=== PATIENT | male | born 1960 | race Caucasian/White ===

== ENCOUNTER 2021-08-07 09:51 | Outpatient (AMB) | payer BC, SELFPAY ==
[2021-08-07 10:49] VITALS: BP 143/81; PULSE 93; TEMP 36.2; BMI 38.5
--- NOTE | 2021-08-07 10:49 | UROVISIT ---
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 Is patient in pain?: No Allergy Allergies No Known Allergies Allergy (Verified 08/07/21 10:50) Home Meds Medication Reconciliation Albuterol Sulfate HFA (INHALER) (PROVENTIL HFA (INHALER)) 2 puff INHALATION Q6HR PRN #0 inh 12/22/13 [History Confirmed 08/07/21] Benazepril Hcl * (LOTENSIN *) 10 mg PO QDAY #0 tab 12/22/13 [History Confirmed 08/07/21] Ezetimibe/Simvastatin (Vytorin 10-20 Mg Tablet) 1 tab PO HS #0 12/22/13 [History Confirmed 08/07/21] aspirin 81 mg chewable tablet (Bay Chewable Low Dose Aspirin) 81 mg PO QDAY #0 12/22/13 [History Confirmed 08/07/21] canagliflozin 300 mg tablet (Invokana) 300 mg PO QDAY #0 12/22/13 [History Confirmed 08/07/21] insulin lispro 100 unit/mL subcutaneous solution (Humalog U-100 Insulin) 14 unit SUB-Q AC #0 vial 12/22/13 [History Confirmed 08/07/21] metformin 1,000 mg tablet (Glucophage) 1,000 mg PO BID #0 tab 12/22/13 [History Confirmed 08/07/21] Psyllium Husk PKT * (METAMUCIL PKT *) 1 pkt PO QDAY PRN #0 pkt 08/28/16 [History Confirmed 08/07/21] docusate sodium 100 mg capsule (Colace) 100 mg PO BID #0 cap 08/28/16 [History Confirmed 08/07/21] insulin glargine 100 unit/mL subcutaneous solution (Lantus U-100 Insulin) 45 unit SUB-Q BID #0 vial 08/28/16 [History Confirmed 08/07/21] dulaglutide 0.75 mg/0.5 mL subcutaneous pen injector (Trulicity) 1 mg SUB-Q QWEEK #2 04/16/17 [History Confirmed 08/07/21] naproxen sodium 220 mg tablet (Aleve) 220 mg PO .PRN #0 tab 08/06/19 [History Confirmed 08/07/21] ibuprofen 600 mg tablet 600 mg PO Q6H #30 tab 11/13/19 [Rx Confirmed 08/07/21] Nurse Note: PSA lab results reviewed with pt. A prostate exam was done by Mitch Garcia was present during exam. Patient is to fu in 1 year after PSA. Fall Screening Do you have a fear of falling?: No Have you had a fall in the last 2 months?: No Do you use an assistive device for ambulation?: No Current Vital Signs Height Height Method Weight Weight Measurement Method Body Mass Index Temperature Temperature Source 1.8 m Stated 125.305 kg Standing Scale 38.5 97.1 F Temporal Artery Scan 08/07/21 10:49 08/07/21 10:49 08/07/21 10:49 08/07/21 10:49 08/07/21 10:49 08/07/21 10:49 08/07/21 10:49 Pulse Rate Pulse Source Blood Pressure Blood Pressure Source Blood Pressure Location Blood Pressure Position 93 Monitor 143/81 H Automatic Cuff Left Upper Arm Sitting 08/07/21 10:49 08/07/21 10:49 08/07/21 10:49 08/07/21 10:49 08/07/21 10:49 08/07/21 10:49 Nursing Documentation Social History Tobacco History Smoking Status: Former smoker Office Procedures Uro Level of Care Nursing/Assessment/Reassessment Patient Status: Established Patient Nursing Assessment/Reassessment: Update [facility] data in EMR, Vital Signs and Medication Reconciliation Coordination of Care: Simp Pt/[facility] for care Established Patient Point Assignment: 45 Established Patient Point Charge: EP Level 2 (40-75) Procedure IM Injection: No Transrectal Ultrasound: No Urology Clinic Office Visit Office Visit Date of visit:: August 07, 2021 09:51 Allergies & Home Medications: Allergies No Known Allergies Allergy (Verified 08/08/20 13:19) Visit: Reason for visit: [] Office Visit findings: []
[2021-08-07 10:54] LABS: Bilirubin,Urine Clinitek Negative (Negative); Blood,Urine Clinitek 1+ (Negative); Glucose, Urine Clinitek 3+ (Negative); Ketones,Urine Clinitek Negative (Negative); Leukocyte Esterase,Urine Clin Negative (Negative); Nitrite,Urine Clinitek Negative (Negative); PH,Urine Clinitek 5.5 (5.0-7.0); Protein,Urine Clinitek Negative (Neg - Trace); Urobilinogen,Urine Clinitek 0.2 mg/dL (0.0-1.0)
--- NOTE | 2021-08-08 06:32 | URONOTEN_ITS ---
RE: YADIRA SHABAZZ : 1960 DATE: 08/07/2021 CHIEF COMPLAINT: 1. BPH with urinary obstruction and LUTS, status post placement of prostatic urethral lift, which was done 5 years ago. 2. Hypertension. 3. Diabetes mellitus. 4. Obesity. HISTORY OF PRESENT ILLNESS: This is a 61-year-old gentleman. He underwent placement of prostatic urethral lift 5 years ago. The patient has done very well. His IPSS score is 4. Quality of life due to urinary symptoms 1. BUN 14, creatinine is 1.0. , GFR 60. PSA on 07/31/2021 is 0.26. He has no history of hematuria, dysuria, or urinary tract infection. Past medical history, family history, review of the systems, personal history, please refer to the patient's history form dated, 08/07/2021, it is in HPI, in EMR. VITAL SIGNS: Vital signs are stable. They are in the HPI, in EMR. GENERAL: Condition is satisfactory. Orientation x3. HEENT: Normocephalic, atraumatic. Eyes: No anemia or jaundice. NECK: Supple. Trachea is central. Thyroid is not enlarged. CHEST: Symmetrical. HEART: Regular rate and rhythm. BREASTS: No masses. ABDOMEN: Very obese. No masses. Liver, spleen, kidney not palpable. No CVA tenderness. RECTAL: Examination of rectum, perineum is normal. External sphincter tone is normal. Prostate is a 40 to 45 g. No definite induration, asymmetry indicative of prostate cancer. No rectal masses. EXTREMITIES: Revealed no edema, cyanosis, or clubbing. VARIOUS LABS: Urine is negative for any infection. BUN is 14, creatinine is 1.0. GFR is 60. PSA on 07/31/2021 is 0.26. RECOMMENDATION: Recommendation is PSA in 1 year. Reappointment in 1 year. DT: 15:55:43 TT: 23:35:00 Ref: - TID: [id number]
== END 2021-08-07 11:27 | disposition home or self-care (01) ==
LOC: HODURO 09:51
PROVIDERS: PCP Specialist; Visit Provider Urology

== ENCOUNTER → 2024-03-19 | Outpatient (CLI) | payer BC, SELFPAY ==
[2024-03-19 10:00] LABS: Glucose Estimated Average 146 mg/dL (80-131); Hemoglobin A1C 6.7 % Hgb (4.8-6.0)
[2024-03-19 10:05] LABS: Creatinine MALB Rnd Ur 169 mg/dL (30-125); Microalbumin Creat Ratio 4 mg/gCrea (<30); Microalbumin, Random Urine 6 mg/L (0-300)
[2024-03-19 10:48] LABS: Alanine Aminotransferase 25 U/L (10-49); Albumin, Serum 4.6 gm/dL (3.4-4.8); Albumin/Globulin Ratio 1.9 (1.2-2.2); Alkaline Phosphatase 67 U/L (46-116); Anion Gap 8 (7-16); Aspartate Amino Transferase 17 U/L (0-34); BUN/Creatinine Ratio 14 Ratio (12-20); Bilirubin,Total 0.5 mg/dL (0.3-1.2); Blood Urea Nitrogen 14 mg/dL (9-23); Calcium 9.4 mg/dL (8.3-10.6); Calcium (Corrected) 9.4 mg/dL (8.5-10.1); Carbon Dioxide 26.1 mMol/L (20.0-31.0); Cardiac Risk Estimate 3.8 RATIO (4.0-6.7); Chloride 101 mMol/L (98-107); Cholesterol 135 mg/dL (132-200); Globulin 2.4 gm/dL (2.3-3.5); Glucose 120 mg/dL (74-106); HDL Cholesterol 36 mg/dL (40-60); LDL Cholesterol,Calculated 70 mg/dL (0-130); Osmolality,Calculated 271 (275-295); Potassium 4.5 mMol/L (3.4-5.1); Sodium 135 mMol/L (136-145); Triglycerides 143 mg/dL (30-150); eGFR > 60 See Note
== END | disposition home or self-care (01) ==
LOC: COPL 08:19
PROVIDERS: PCP Specialist; Referring Provider Specialist; Visit Provider Specialist
DX: E11.65 Type 2 diabetes mellitus with hyperglycemia (principal)
CPT/HCPCS: 36415; 80053; 80061; 82043; 82570; 83036

== ENCOUNTER → 2024-04-20 | Outpatient (CLI) | payer BC, SELFPAY ==
[2024-04-20 10:32] LABS: Prothrombin Time 11.4 Seconds (9.0-12.2)
[2024-04-20 10:33] LABS: Basophils # (Auto) 0.1 Thou/mm3 (0.0-0.2); Basophils % (Auto) 1 % (0-2.5); Eosinophils # (Auto) 0.1 Thou/mm3 (0.0-0.5); Eosinophils % (Auto) 1 % (0-10); Hematocrit 47.3 % (41.0-53.0); Hemoglobin 16.4 g/dL (13.5-16.0); Immature Granulocytes % (Auto) 0 % (0-0); Immature Granulocytes Auto 0.03 Thou/mm3 (0.00-0.00); Lymphocytes # (Auto) 2.1 Thou/mm3 (1.0-4.8); Lymphocytes % (Auto) 26 % (10-50); Mean Corpuscular HGB Conc 34.7 g/dl (31.0-37.0); Mean Corpuscular Hemoglobin 31.6 pg (25.0-35.0); Mean Corpuscular Volume 91 fL (80-100); Monocytes # (Auto) 0.6 Thou/mm3 (0.0-0.8); Monocytes % (Auto) 8 % (0-12); Neutrophils # (Auto) 5.3 Thou/mm3 (1.8-7.7); Neutrophils % (Auto) 65 % (37-80); Nucleated Red Blood Cell % 0 /100 WBC (0); Platelet Count 230 Thou/mm3 (140-440); RDW Standard Deviation 42.3 fL (35.1-43.9); Red Blood Count 5.19 Miln/mm3 (4.50-5.90); White Blood Count 8.2 Thou/mm3 (3.8-10.6)
[2024-04-20 10:47] LABS: Alanine Aminotransferase 30 U/L (10-49); Albumin, Serum 4.8 gm/dL (3.4-4.8); Alkaline Phosphatase 59 U/L (46-116); Anion Gap 10 (7-16); Aspartate Amino Transferase 15 U/L (0-34); BUN/Creatinine Ratio 14 Ratio (12-20); Bilirubin,Direct 0.1 mg/dL (0.0-0.3); Bilirubin,Total 0.4 mg/dL (0.3-1.2); Blood Urea Nitrogen 13 mg/dL (9-23); Calcium 9.9 mg/dL (8.3-10.6); Carbon Dioxide 26.9 mMol/L (20.0-31.0); Cardiac Risk Estimate 3.8 RATIO (4.0-6.7); Chloride 104 mMol/L (98-107); Cholesterol 154 mg/dL (132-200); Creatinine (Component) 0.9 mg/dL (0.6-1.3); Glucose 120 mg/dL (74-106); HDL Cholesterol 41 mg/dL (40-60); LDL Cholesterol,Calculated 79 mg/dL (0-130); Osmolality,Calculated 282 (275-295); Potassium 4.6 mMol/L (3.4-5.1); Sodium 141 mMol/L (136-145); Total Protein 7.4 gm/dL (5.7-8.2); Triglycerides 172 mg/dL (30-150); eGFR > 60 See Note
[2024-04-20 10:50] LABS: AFP Non-Pregnant < 0.00 ng/mL (<8.10)
[2024-04-22 11:19] LABS: HCV RNA, PCR <15 NOT DETECTED IU/mL
[2024-04-23 06:27] LABS: HCV RNA, PCR Log IU <1.18 NOT DETECTED Log IU/mL
== END | disposition home or self-care (01) ==
LOC: COPL 09:31
PROVIDERS: PCP Specialist; Referring Provider Colon & Rectal Surgery; Visit Provider Colon & Rectal Surgery
DX: K74.60 Unspecified cirrhosis of liver (principal); B18.2 Chronic viral hepatitis C
CPT/HCPCS: 36415; 80048; 80061; 80076; 82105; 85025; 85610; 87522

== ENCOUNTER → 2024-06-18 | Outpatient (CLI) | payer BC, SELFPAY ==
[2024-06-18 10:17] LABS: Prostate Specific Antigen 0.37 ng/mL (0-4.00)
[2024-06-18 10:19] LABS: Creatinine MALB Rnd Ur 85 mg/dL (30-125); Microalbumin Creat Ratio 6 mg/gCrea (<30); Microalbumin, Random Urine 5 mg/L (0-300)
[2024-06-18 10:23] LABS: Alanine Aminotransferase 28 U/L (10-49); Albumin, Serum 4.4 gm/dL (3.4-4.8); Albumin/Globulin Ratio 1.7 (1.2-2.2); Alkaline Phosphatase 59 U/L (46-116); Anion Gap 9 (7-16); Aspartate Amino Transferase 18 U/L (0-34); BUN/Creatinine Ratio 17 Ratio (12-20); Bilirubin,Total 0.6 mg/dL (0.3-1.2); Blood Urea Nitrogen 15 mg/dL (9-23); Calcium 9.6 mg/dL (8.3-10.6); Calcium (Corrected) 9.6 mg/dL (8.5-10.1); Carbon Dioxide 26.2 mMol/L (20.0-31.0); Cardiac Risk Estimate 3.4 RATIO (4.0-6.7); Chloride 106 mMol/L (98-107); Cholesterol 131 mg/dL (132-200); Creatinine (Component) 0.9 mg/dL (0.6-1.3); Globulin 2.6 gm/dL (2.3-3.5); Glucose 118 mg/dL (74-106); HDL Cholesterol 38 mg/dL (40-60); LDL Cholesterol,Calculated 62 mg/dL (0-130); Osmolality,Calculated 283 (275-295); Potassium 4.5 mMol/L (3.4-5.1); Sodium 141 mMol/L (136-145); Triglycerides 156 mg/dL (30-150); eGFR > 60 See Note
== END | disposition home or self-care (01) ==
PROVIDERS: PCP Specialist; Referring Provider Specialist; Visit Provider Urology
DX: N40.1 Benign prostatic hyperplasia with lower urinary tract symptoms (principal); E11.65 Type 2 diabetes mellitus with hyperglycemia; E78.2 Mixed hyperlipidemia
CPT/HCPCS: 36415; 80053; 80061; 82043; 82570; 84153

== ENCOUNTER → 2024-08-07 | Outpatient (BNVA) | payer BC, SELFPAY | END | disposition home or self-care (01) | PROVIDERS: PCP Specialist; Referring Provider Specialist; Visit Provider Urology | DX: N40.1 Benign prostatic hyperplasia with lower urinary tract symptoms (principal); N13.8 Other obstructive and reflux uropathy; R35.0 Frequency of micturition; I10 Essential (primary) hypertension; E11.9 Type 2 diabetes mellitus without complications; E66.9 Obesity, unspecified; Z68.34 Body mass index [BMI] 34.0-34.9, adult; E78.00 Pure hypercholesterolemia, unspecified; Z87.891 Personal history of nicotine dependence | CPT/HCPCS: 81003; 99212; G0463 ==

== ENCOUNTER → 2024-10-15 | Outpatient (CLI) | payer BC, SELFPAY ==
[2024-10-15 10:45] LABS: Glucose Estimated Average 126 mg/dL (80-131); Hemoglobin A1C 6.0 % Hgb (4.8-6.0)
[2024-10-15 11:12] LABS: Alanine Aminotransferase 21 U/L (10-49); Albumin, Serum 4.3 gm/dL (3.4-4.8); Albumin/Globulin Ratio 1.4 (1.2-2.2); Alkaline Phosphatase 57 U/L (46-116); Anion Gap 9 (7-16); Aspartate Amino Transferase 18 U/L (0-34); BUN/Creatinine Ratio 12 Ratio (12-20); Bilirubin,Total 0.4 mg/dL (0.3-1.2); Blood Urea Nitrogen 12 mg/dL (9-23); Calcium 9.3 mg/dL (8.3-10.6); Calcium (Corrected) 9.3 mg/dL (8.5-10.1); Carbon Dioxide 25.5 mMol/L (20.0-31.0); Cardiac Risk Estimate 3.9 RATIO (4.0-6.7); Chloride 107 mMol/L (98-107); Cholesterol 132 mg/dL (132-200); Creatinine (Component) 1.0 mg/dL (0.6-1.3); Globulin 3.0 gm/dL (2.3-3.5); Glucose 137 mg/dL (74-106); HDL Cholesterol 34 mg/dL (40-60); LDL Cholesterol,Calculated 75 mg/dL (0-130); Osmolality,Calculated 282 (275-295); Potassium 5.1 mMol/L (3.4-5.1); Sodium 141 mMol/L (136-145); Total Protein 7.3 gm/dL (5.7-8.2); Triglycerides 117 mg/dL (30-150); eGFR > 60 See Note
[2024-10-15 11:33] LABS: Creatinine MALB Rnd Ur 130 mg/dL (30-125); Microalbumin Creat Ratio 4 mg/gCrea (<30); Microalbumin, Random Urine 5 mg/L (0-300)
== END | disposition home or self-care (01) ==
LOC: COPL 09:35
PROVIDERS: PCP Specialist; Referring Provider Specialist; Visit Provider Specialist
DX: E11.65 Type 2 diabetes mellitus with hyperglycemia (principal); E78.2 Mixed hyperlipidemia
CPT/HCPCS: 36415; 80053; 80061; 82043; 82570; 83036

== ENCOUNTER → 2025-02-25 | Outpatient (CLI) | payer MEDICARE, SELFPAY ==
[2025-02-25 11:59] LABS: Glucose Estimated Average 134 mg/dL (80-131); Hemoglobin A1C 6.3 % Hgb (4.8-6.0)
[2025-02-25 12:05] LABS: Creatinine MALB Rnd Ur 85 mg/dL (30-125); Microalbumin Creat Ratio 11 mg/gCrea (<30); Microalbumin, Random Urine 9 mg/L (0-300)
[2025-02-25 12:08] LABS: Alanine Aminotransferase 22 U/L (10-49); Albumin, Serum 5.0 gm/dL (3.4-4.8); Albumin/Globulin Ratio 2.1 (1.2-2.2); Alkaline Phosphatase 56 U/L (46-116); Anion Gap 9 (7-16); Aspartate Amino Transferase 15 U/L (0-34); BUN/Creatinine Ratio 14 Ratio (12-20); Bilirubin,Total 0.5 mg/dL (0.3-1.2); Blood Urea Nitrogen 14 mg/dL (9-23); Calcium 9.8 mg/dL (8.3-10.6); Calcium (Corrected) 9.8 mg/dL (8.5-10.1); Carbon Dioxide 28.8 mMol/L (20.0-31.0); Cardiac Risk Estimate 3.5 RATIO (4.0-6.7); Chloride 103 mMol/L (98-107); Cholesterol 139 mg/dL (132-200); Creatinine (Component) 1.0 mg/dL (0.6-1.3); Globulin 2.4 gm/dL (2.3-3.5); Glucose 159 mg/dL (74-106); HDL Cholesterol 40 mg/dL (40-60); LDL Cholesterol,Calculated 57 mg/dL (0-130); Osmolality,Calculated 284 (275-295); Potassium 4.9 mMol/L (3.4-5.1); Sodium 141 mMol/L (136-145); Total Protein 7.4 gm/dL (5.7-8.2); Triglycerides 211 mg/dL (30-150); eGFR > 60 See Note
== END | disposition home or self-care (01) ==
PROVIDERS: PCP Specialist; Referring Provider Specialist; Visit Provider Specialist
DX: E11.65 Type 2 diabetes mellitus with hyperglycemia (principal); E78.2 Mixed hyperlipidemia
CPT/HCPCS: 36415; 80053; 80061; 82043; 82570; 83036